=== PATIENT | male | born 1960 | race Two or more races ===

== ENCOUNTER 2020-11-13 10:39 | Outpatient (CLI) | payer OTHER | END 2020-11-13 23:59 | disposition home or self-care (01) | LOC: LAB 10:39 | PROVIDERS: ATTEND Student in an Organized Health Care Education/Training Program | DX: Z01.812 Encounter for preprocedural laboratory examination (principal); Z20.822 Contact with and (suspected) exposure to COVID-19 | CPT/HCPCS: C9803; U0003 ==

== ENCOUNTER 2020-11-19 12:04 | Inpatient (IN) | payer OTHER ==
[~2020-11-19] VITALS: Ht 165.1 cm; Wt 63.5 kg
[2020-11-19] MEDS ORDERED: BUPIVACAINE 0.5 % PF 150 MG/30 ML VIAL ONE (12:07)
[2020-11-19] MEDS ORDERED: BACITRACIN 50000 UNITS/VIAL ONE (12:08)
[2020-11-19] MEDS ORDERED: ANESTHESIA TRAY IN PYXIS 1 EA TRAY MC ONE (12:18)
[2020-11-19 12:30] VITALS: BP 150/87
[2020-11-19] MEDS ORDERED: AMLO-213 PO (13:42)
--- NOTE | 2020-11-19 13:45 | NUR ---
RN NOTES PT ARRIVED TO UNIT AT 1215 ACCOMPANIED BY STAFF FROM ADMITTING DEPARTMENT FOR DAY SURGERY. A/O X4. ABLE TO MAKE NEEDS KNOWN. AMBULATORY. PT ASSISTED TO BED, ORIENTED TO STAFF AND ROOM. V/S TAKEN AND RECORDED. PT VERBALIZED THAT HE WILL HAVE RIGHT SHOULDER SURGERY. ON ROOM AIR, TOLERATING WELL, NO SOB NOTED. PT INSERTED IV ACCESS ON LAC G#18. PT IS FOR RIGHT REVERSE TOTAL SHOULDER ARTHROPLASTY BY DR WHEELER. SAFETY MEASURES INITIATED.: BED PLACED IN LOWEST POSITION AND LOCKED. SR UP X2 AND CALL LIGHT PLACED W/IN EASY REACH OF PT. WILL CONTINUE TO MONITOR.
--- NOTE | 2020-11-19 14:06 | NUR ---
RN NOTES PT PICKED-UP BY [facility] BARROW AND YoselynTRANSPORTER TO SURGERY JUST NOW.
[2020-11-19 16:00] VITALS: BP 149/81
--- NOTE | 2020-11-19 16:00 | NUR ---
RN NOTES PT RETURNED TO TO UNIT, HIS SURGERY WAS CANCELLED BY DR WHEELER AND ANESTHESIOLOGIST PER [facility] [place] [facility] DUE TO ACUTE RENAL FAILURE EVIDENCE BY HIGH BUN 136, CREATININE [address] CALERO CALLED AND MADE AWARE, INFORMED HIM THAT PT'S NEEDS NEPHRO CONSULT. AWAITING FOR ORDERS. WILL CONTINUE TO MONITOR PT'S STATUS.
[2020-11-19] MEDS ORDERED: ONDANSETRON HCL/PF 4 MG/2 ML VIAL IVP PRN (17:30)
[2020-11-19] MEDS ORDERED: ACETAMINOPHEN 325 MG TABLET PO PRN (17:30)
[2020-11-19] MEDS ORDERED: ZOLPIDEM TARTRATE 5 MG TABLET PO PRN (17:30)
[2020-11-19] MEDS ORDERED: Z GUARD REMEDY 2 OZ OINT TP PRN (17:30)
[2020-11-19] MEDS ORDERED: MAG HYDROX/AL HYDROX/SIMETH 30 ML UDC PO PRN (17:30)
[2020-11-19] MEDS ORDERED: HYDROCODONE/APAP 5/325MG TABLET PO PRN (17:30)
[2020-11-19] MEDS ORDERED: MAGNESIUM HYDROXIDE 30 ML UDC PO PRN (17:30)
--- NOTE | 2020-11-19 18:46 | NUR ---
MS RN CLOSING NOTES PT IN BED WATCHING TV AT THIS TIME. A/O X4. MARSHALLESE SPEAKING AND UNDERSTANDS MINIMAL TOGOLESE. AMBULATORY WITH STEADY GAIT. ON ROOM AIR, TOLERATING WELL, NO SOB NOTED. IV ACCESS ON LAC G#18 INTACT, PATENT AND FLUSHES WELL. ALL NEEDS AND CARE ATTENDED WELL. SAFETY MEASURES MAINTAINED: BED IN LOWEST POSITION AND LOCKED. SR UP X2 AND CALL LIGHT PLACED W/IN EASY REACH OF PT. WILL ENDORSE MEET TO GLOBAL PRESIDENT NURSE.
[2020-11-19 20:00] VITALS: BP 124/73
--- NOTE | 2020-11-19 23:55 | NUR ---
winter inside technical sales representative in to see the patient. new orders recieved.
[2020-11-20] MEDS: IV 1/2NS 1000 ML 1,000 ML IV PRN ×2 (00:08→14:41)
[2020-11-20 07:20] LABS: BASOPHILS # (AUTO) 0.1 /CMM (0.0-0.2); BASOPHILS % (AUTO) 1.4 % (0.0-2.0); EOSINOPHILS % (AUTO) 5.1 % (0.0-6.0); HEMATOCRIT 24 % (39-51); LYMPHOCYTES # (AUTO) 0.9 /CMM (0.8-4.8); LYMPHOCYTES % (AUTO) 18.9 % (20.0-44.0); MEAN CORPUSCULAR HGB CONC 34 g/dl (31.0-36.0); MEAN CORPUSCULAR VOLUME 88 fL (80-96); MONOCYTES # (AUTO) 0.3 /CMM (0.1-1.30); MONOCYTES % (AUTO) 6.3 % (2.0-12.0); NEUTROPHILS # (AUTO) 3.1 /CMM (1.8-8.9); NEUTROPHILS % (AUTO) 68.3 % (43.0-81.0); PLATELET COUNT (AUTO) 125 /CMM (150-450); RED BLOOD CELL COUNT(AUTO) 2.67 MIL/uL (4.5-6.0); WHITE BLOOD COUNT (AUTO) 4.6 K/uL (4.3-11.0)
[2020-11-20 08:00] VITALS: BP 136/88
--- NOTE | 2020-11-20 08:00 | NUR ---
alerted about abn. labs.
[2020-11-20 08:07] LABS: MAGNESIUM 1.9 mg/dL (1.8-2.4); POTASSIUM 3.7 mmol/L (3.5-5.1)
[2020-11-20 08:22] LABS: CALCIUM, SERUM 5.6 mg/dL (8.5-10.1); CREATININE 17.1 mg/dL (0.6-1.3); PHOSPHORUS 8.3 mg/dL (2.5-4.9)
[2020-11-20] MEDS: AMLODIPINE BESYLATE 10 MG TABLET PO SCH (10:20)
[2020-11-20 16:00] VITALS: BP 140/80
[2020-11-20 16:09] LABS: BILIRUBIN,URINE NEGATIVE (NEGATIVE); COLOR,URINE YELLOW (YELLOW); LEUKOCYTE ESTERASE ,URINE NEGATIVE (NEGATIVE); NITRITE, URINE NEGATIVE (NEGATIVE); PROTEIN,URINE 100 mg/dl (NEGATIVE); UGLUCOSE NEGATIVE (NEGATIVE); UROBILINOGEN,URINE 0.2 EU/dL (0.2)
[2020-11-20 16:11] LABS: CREATININE, URINE 90.4 MG/DL (30.0-125.0)
[2020-11-20 16:19] LABS: BACTERIA,URINE Few /HPF (None Seen); RBC,URINE 0-2 /HPF (0-2); WBC,URINE 0-2 /HPF (0-3)
[2020-11-20 16:20] LABS: MUCUS,URINE Few /LPF (None Seen); SQUAMOUS EPITHELIAL CELL,UR Few /HPF (None Seen)
--- NOTE | 2020-11-20 16:30 | NUR ---
renal ultrasound done.
[2020-11-20 17:00] LABS: EOSINOPHIL,URINE None Seen
--- NOTE | 2020-11-20 18:00 | NUR ---
no change in status.pt. without complaints.
[2020-11-20 20:00] VITALS: BP 137/94
[2020-11-21] MEDS: IV 1/2NS 1000 ML 1,000 ML IV PRN (01:03)
[2020-11-21 06:46] LABS: BASOPHILS # (AUTO) 0.1 /CMM (0.0-0.2); BASOPHILS % (AUTO) 1.6 % (0.0-2.0); HEMATOCRIT 25 % (39-51); HEMOGLOBIN 8.5 g/dL (13.5-17.5); LYMPHOCYTES # (AUTO) 1.1 /CMM (0.8-4.8); LYMPHOCYTES % (AUTO) 21.9 % (20.0-44.0); MEAN CORPUSCULAR HGB CONC 34 g/dl (31.0-36.0); MEAN CORPUSCULAR VOLUME 88 fL (80-96); MONOCYTES # (AUTO) 0.3 /CMM (0.1-1.30); MONOCYTES % (AUTO) 5.9 % (2.0-12.0); NEUTROPHILS # (AUTO) 3.2 /CMM (1.8-8.9); NEUTROPHILS % (AUTO) 65.6 % (43.0-81.0); PLATELET COUNT (AUTO) 129 /CMM (150-450); RED BLOOD CELL COUNT(AUTO) 2.84 MIL/uL (4.5-6.0); WHITE BLOOD COUNT (AUTO) 4.8 K/uL (4.3-11.0)
[2020-11-21 07:37] LABS: ALBUMIN 3.8 g/dL (3.4-5.0); BILIRUBIN,TOTAL 0.3 mg/dL (0.2-1.0); MAGNESIUM 1.8 mg/dL (1.8-2.4); POTASSIUM 3.4 mmol/L (3.5-5.1); TOTAL PROTEIN, SERUM 7.3 g/dL (6.4-8.2)
[2020-11-21 07:50] LABS: CALCIUM, SERUM 5.9 mg/dL (8.5-10.1); CREATININE 16.2 mg/dL (0.6-1.3)
[2020-11-21 07:51] LABS: PHOSPHORUS 8.1 mg/dL (2.5-4.9)
[2020-11-21 09:26] VITALS: BP 149/86
[2020-11-21] MEDS: AMLODIPINE BESYLATE 10 MG TABLET PO SCH (09:26)
[2020-11-21] MEDS: CITRIC ACID/SODIUM CITRATE (BICITRA)15 ML UDC PO SCH ×2 (09:27→12:45)
[2020-11-21] MEDS: CALCIUM ACETATE 667 MG TABLET PO SCH ×2 (09:27→12:45)
--- NOTE | 2020-11-21 13:15 | NUR ---
Patient discharged to home with son via private auto. No s/s of discomfort or distress. All belongings sent with patient. IV removed, tolerated well. Discharge/follow up packet provided and reviewed with patient. Verbalized understanding to follow up with Lalita Rivera.
[2020-11-22 03:06] LABS: CREATININE KINASE (CK),MB 3.3 ng/mL (0.0-10.4); PTH, INTACT 397 pg/mL (15-65)
[2020-11-22 12:06] LABS: *SPE A/G RATIO 1.2 (0.7-1.7); *SPE ALBUMIN 3.7 g/dL (2.9-4.4); *SPE ALPHA-1-GLOBULIN 0.2 g/dL (0.0-0.4); *SPE ALPHA-2-GLOBULIN 0.7 g/dL (0.4-1.0); *SPE GLOBULIN, TOTAL 3.2 g/dL (2.2-3.9); *SPE M-SPIKE Not Observed g/dL (Not Observed); *SPEGAMMA GLOBULIN 1.3 g/dL (0.4-1.8)
== END 2020-11-21 13:30 | disposition home or self-care (01) | DRG 683 ==
LOC: DS 12:04 → MED 12:05
PROVIDERS: ADMIT Student in an Organized Health Care Education/Training Program; ATTEND Internal Medicine
DX: N17.9 Acute kidney failure, unspecified (principal); I12.0 Hypertensive chronic kidney disease with stage 5 chronic kidney disease or end stage renal disease; E87.2 Acidosis; M19.011 Primary osteoarthritis, right shoulder; N18.5 Chronic kidney disease, stage 5; E83.51 Hypocalcemia; Z87.891 Personal history of nicotine dependence; D63.1 Anemia in chronic kidney disease; M25.511 Pain in right shoulder; N25.81 Secondary hyperparathyroidism of renal origin; Z96.611 Presence of right artificial shoulder joint; Z53.8 Procedure and treatment not carried out for other reasons
CPT/HCPCS: 36415; 76770-TC; 80048-TC; 80053-TC; 80061-TC; 81001; 82550-TC; 82553; 82570-TC; 82728-TC; 83540-TC; 83735-TC; 83970; 84100-TC; 84155; 84155-TC; 84165; 84300-TC; 85025-TC; 87081-TC; G0378; J3490; J7042